=== PATIENT | female | born 1980 | race Caucasian/White ===

== ENCOUNTER 2016-08-04 16:57 | Emergency (ER) | payer OTHER ==
[~2016-08-04] VITALS: Ht 165.1 cm; Wt 94.3 kg
[2016-08-04] MEDS ORDERED: REXU1TAB4 PO (17:53)
[2016-08-04] MEDS ORDERED: LAMO100T PO (17:53)
[2016-08-04] MEDS ORDERED: TRAZ10TA GT (17:53)
[2016-08-04] MEDS ORDERED: LITH300C PO ×2 (17:53)
[2016-08-04] MEDS ORDERED: BUPR300T34 PO (17:53)
[2016-08-04] MEDS ORDERED: NS 1,000 ML IV ONE (19:30)
[2016-08-04] MEDS ORDERED: ONDANSETRON 4MG/2ML VIAL (J2405) IV ONE (19:30)
[2016-08-04 20:02] LABS: BASO % 0.2 % (0.0-1.0); EOS # 0.2 K/mm3 (0.0-0.50); EOS % 1.2 % (0.0-3.0); LARGE UNSTAINED CELL # 0.1 K/mm3 (0.0-0.4); LARGE UNSTAINED CELL % 0.6 % (0.0-4.0); LYMPH % 8.1 % (24.0-44.0); MEAN CORPUSCULAR HEMOGLOBIN 30.1 pg (27.0-33.0); MEAN CORPUSCULAR HGB CONC 32.8 g/dl (32.0-36.5); MEAN CORPUSCULAR VOLUME 91.8 fl (80.0-96.0); MONO # 0.3 K/mm3 (0.0-0.8); MONO % 2.3 % (0.0-5.0); NEUTROPHILS # 11.1 K/mm3 (1.8-7.7); NEUTROPHILS % 87.7 % (36.0-66.0); PLATELET COUNT, AUTOMATED 280 k/mm3 (150-450); RED CELL DISTRIBUTION WIDTH 12.6 % (11.5-14.5); WHITE BLOOD COUNT 12.6 K/mm3 (4.0-10.0)
[2016-08-04 20:16] LABS: CONTROL LINE HCG INT CTR LINE PRESENT
[2016-08-04 20:23] LABS: ALBUMIN 3.7 GM/DL (3.2-5.2); ALBUMIN/GLOBULIN RATIO 1.09 (1.00-1.93); ALKALINE PHOSPHATASE 53 U/L (45-117); ALT/SGPT 18 U/L (12-78); ANION GAP 7 MEQ/L (8-16); AST/SGOT 16 U/L (15-37); BILIRUBIN,DIRECT < 0.1 MG/DL (0.0-0.2); BILIRUBIN,TOTAL 0.2 MG/DL (0.2-1.0); BLOOD UREA NITROGEN 10 MG/DL (7-18); CALCIUM LEVEL 8.2 MG/DL (8.5-10.1); CARBON DIOXIDE LEVEL 26 MEQ/L (21-32); CHLORIDE LEVEL 105 MEQ/L (98-107); CREATININE FOR GFR 0.94 MG/DL (0.55-1.02); GLOMERULAR FILTRATION RATE > 60.0 (>60); GLUCOSE, FASTING 88 MG/DL (70-105); POTASSIUM SERUM 4.3 MEQ/L (3.5-5.1); SODIUM LEVEL 138 MEQ/L (136-145); TOTAL PROTEIN 7.1 GM/DL (6.4-8.2)
[2016-08-04] MEDS ORDERED: AUGM875T27 PO (21:39)
[2016-08-04] MEDS ORDERED: ZOFR4TAB3 PO (21:39)
[2016-08-04 21:43] VITALS: BP 113/64
[2016-08-04] MEDS ORDERED: AUGMENTIN 875 MG TAB PO ONE (21:45)
== END 2016-08-04 21:59 | disposition home or self-care (01) ==
LOC: M ED 18:01
DX: K04.7 Periapical abscess without sinus (principal); F31.9 Bipolar disorder, unspecified; F17.210 Nicotine dependence, cigarettes, uncomplicated; Z79.2 Long term (current) use of antibiotics; Z88.1 Allergy status to other antibiotic agents; Z79.899 Other long term (current) drug therapy
CPT/HCPCS: 80048; 80076; 83690; 84703; 85025; 87040; 87804; 87880; 96361; 96374; 99283; J2405

== ENCOUNTER → 2016-09-03 | Outpatient (CLI) | payer OTHER ==
[~2016-09-03] MED LIST: AUGM875T27 PO; BUPR300T34 PO; LAMO100T PO; LITH300C PO; REXU1TAB4 PO; TRAZ10TA GT; ZOFR4TAB3 PO
[2016-09-03 11:28] LABS: FREE T4 0.96 NG/DL (0.76-1.46)
[2016-09-03 11:29] LABS: LITHIUM LEVEL 0.58 MEQ/L (0.60-1.20)
== END ==
LOC: M LAB 10:23
PROVIDERS: ATTEND Psychiatry & Neurology Psychiatry
DX: Z79.899 Other long term (current) drug therapy (principal)

== ENCOUNTER → 2017-03-19 | Outpatient (CLI) | payer OTHER ==
[~2017-03-19] MED LIST changes: -AUGM875T27 PO; +AUGM875T28 PO
[2017-03-19 10:10] LABS: MEAN CORPUSCULAR HEMOGLOBIN 29.4 pg (27.0-33.0); MEAN CORPUSCULAR HGB CONC 33.4 g/dl (32.0-36.5); MEAN CORPUSCULAR VOLUME 88.1 fl (80.0-96.0); PLATELET COUNT, AUTOMATED 393 10^3/uL (150-450); RED CELL DISTRIBUTION WIDTH 14.6 % (11.5-14.5); WHITE BLOOD COUNT 8.7 10^3/uL (4.0-10.0)
[2017-03-19 10:47] LABS: ALBUMIN 3.4 GM/DL (3.2-5.2); ALKALINE PHOSPHATASE 69 U/L (45-117); ALT/SGPT 21 U/L (12-78); ANION GAP 4 MEQ/L (8-16); AST/SGOT 13 U/L (15-37); BILIRUBIN,TOTAL 0.2 MG/DL (0.2-1.0); BLOOD UREA NITROGEN 9 MG/DL (7-18); CALCIUM LEVEL 8.6 MG/DL (8.5-10.1); CARBON DIOXIDE LEVEL 28 MEQ/L (21-32); CHLORIDE LEVEL 108 MEQ/L (98-107); CHOLESTEROL LEVEL 156 MG/DL (<200); CREATININE FOR GFR 0.79 MG/DL (0.55-1.02); GLOMERULAR FILTRATION RATE > 60.0 (>60); GLUCOSE, FASTING 88 MG/DL (70-105); POTASSIUM SERUM 4.5 MEQ/L (3.5-5.1); SODIUM LEVEL 140 MEQ/L (136-145); THYROXINE (T4) 8.5 UG/DL (4.5-12.0); TOTAL PROTEIN 6.5 GM/DL (6.4-8.2); TRIGLYCERIDES LEVEL 130 MG/DL (<150)
--- NOTE | 2017-03-19 13:55 | REP ---
CHEST, TWO VIEW: There is no evidence of acute infiltrate. No pleural effusion is seen. The heart is normal in size. The mediastinal silhouette is unremarkable. The visualized osseous structures are intact. IMPRESSION: No acute pulmonary disease. Signed by Duy Berger MD 03/19/2017 02:40 P
--- NOTE | 2017-03-19 17:26 | ECGEPIP ---
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
== END ==
LOC: M LAB 09:17
PROVIDERS: ATTEND Family Medicine
DX: D64.9 Anemia, unspecified (principal); R53.83 Other fatigue; E03.9 Hypothyroidism, unspecified

== ENCOUNTER 2018-03-14 16:20 | Emergency (ER) | payer OTHER | END 2018-03-14 17:25 | disposition home or self-care (01) | LOC: M ED 16:20 | DX: N93.8 Other specified abnormal uterine and vaginal bleeding (principal); F33.9 Major depressive disorder, recurrent, unspecified; Z97.5 Presence of (intrauterine) contraceptive device; Z88.1 Allergy status to other antibiotic agents; F17.210 Nicotine dependence, cigarettes, uncomplicated | CPT/HCPCS: 99282 ==

== ENCOUNTER 2018-08-08 18:37 | Inpatient (IN) | payer MEDICAID, OTHER ==
[~2018-08-08] VITALS: Ht 165.1 cm; Wt 98.2 kg
[2018-08-08] MEDS: NICOTINE 21MG/24HR 1 EA TRANSDERMAL TD SCH (09:00)
[~2018-08-08 18:37] MED LIST changes: +ZOFR4TAB14 PO; -ZOFR4TAB3 PO
[2018-08-08 19:54] LABS: HEMATOCRIT 44.4 % (36.0-47.0); HEMOGLOBIN 14.5 g/dl (12.0-15.5); MEAN CORPUSCULAR HEMOGLOBIN 29.1 pg (27.0-33.0); MEAN CORPUSCULAR HGB CONC 32.7 g/dl (32.0-36.5); MEAN CORPUSCULAR VOLUME 89.2 fl (80.0-96.0); PLATELET COUNT, AUTOMATED 351 10^3/uL (150-450); RED BLOOD COUNT 4.98 10^6/uL (4.00-5.40); WHITE BLOOD COUNT 12.1 10^3/uL (4.0-10.0)
[2018-08-08 20:08] LABS: HCG, SERUM QUALITATIVE NEGATIVE (NEGATIVE)
[2018-08-08 20:23] LABS: ACETAMINOPHEN LEVEL < 2.0 UG/ML (10.0-30.0); ALBUMIN 3.8 GM/DL (3.2-5.2); ALT/SGPT 34 U/L (12-78); BILIRUBIN,DIRECT < 0.1 MG/DL (0.0-0.2); BILIRUBIN,TOTAL 0.2 MG/DL (0.2-1.0); BLOOD UREA NITROGEN 6 MG/DL (7-18); CALCIUM LEVEL 8.4 MG/DL (8.5-10.1); CARBON DIOXIDE LEVEL 27 MEQ/L (21-32); CHLORIDE LEVEL 107 MEQ/L (98-107); CREATININE FOR GFR 0.76 MG/DL (0.55-1.30); ETHYL ALCOHOL (ETHANOL) < 0.003 % (0.000-0.010); GLOMERULAR FILTRATION RATE > 60.0 (>60); GLUCOSE, FASTING 108 MG/DL (70-100); POTASSIUM SERUM 3.9 MEQ/L (3.5-5.1); SALICYLATE LEVEL 3.8 MG/DL (5.0-30.0); SODIUM LEVEL 140 MEQ/L (136-145); TOTAL PROTEIN 7.2 GM/DL (6.4-8.2)
[2018-08-08 21:06] LABS: AMPHETAMINES LEVEL URINE NEGATIVE (NEGATIVE); BARBITURATES URINE NEGATIVE (NEGATIVE); BENZODIAZEPINES URINE NEGATIVE (NEGATIVE); CANNABINOIDS URINE NEGATIVE (NEGATIVE); COCAINE METABOLITE URINE NEGATIVE (NEGATIVE); METHADONE URINE NEGATIVE (NEGATIVE); OPIATES URINE NEGATIVE (NEGATIVE); PHENCYCLIDINE URINE NEGATIVE (NEGATIVE)
[2018-08-08] MEDS ORDERED: ACETAMINOPHEN TAB 650MG DOSE (2X325MG) PO PRN (22:00)
[2018-08-08] MEDS ORDERED: hydrOXYzine 25 MG TAB PO PRN (22:00)
[2018-08-08] MEDS ORDERED: MOM 30ML SUSPENSION UDC PO PRN (22:00)
[2018-08-08] MEDS ORDERED: MAALOX 30 ML SUSP *UDC PO PRN (22:00)
[2018-08-08 23:42] VITALS: BP 121/83
[2018-08-09 06:00] VITALS: BP 118/77
[2018-08-09] MEDS: NICOTINE 21MG/24HR 1 EA TRANSDERMAL TD SCH (09:00)
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
[2018-08-09 18:49] VITALS: BP 135/74
[2018-08-09] MEDS ORDERED: PALIPERIDONE 3 MG ER TAB (INVEGA) PO SCH (21:00)
[2018-08-09] MEDS: traZODone 50 MG TAB PO PRN (21:32)
[2018-08-10 06:47] VITALS: BP 106/54
[2018-08-10 06:49] LABS: HEMATOCRIT 40.4 % (36.0-47.0); HEMOGLOBIN 13.5 g/dl (12.0-15.5); MEAN CORPUSCULAR HEMOGLOBIN 29.7 pg (27.0-33.0); MEAN CORPUSCULAR HGB CONC 33.4 g/dl (32.0-36.5); PLATELET COUNT, AUTOMATED 323 10^3/uL (150-450); RED BLOOD COUNT 4.54 10^6/uL (4.00-5.40); WHITE BLOOD COUNT 9.4 10^3/uL (4.0-10.0)
--- NOTE | 2018-08-10 08:58 | MHIPNPDOC ---
[facility] Progress Note Progress Note DATE OF SERVICE: 08/10/18 HISTORY: See HPI. Interval history: Patient seen lying in bed in the morning. She reports depressive symptoms, hopelessness, guilt, low energy and poor sleep, although normal appetite. She endorses SI, denies HI/AVH/max. She did not attend groups yesterday, but states she will try to make an effort to attend groups today. VITAL SIGNS: See below. NEW TEST RESULTS: EKG 399 ms, normal sinus rhythm CURRENT MEDICATIONS: See below. MENTAL STATUS EXAMINATION: Patient is a 37-year old female, who is lying in bed in hospital clothing, wear glasses, unkempt. Build: overweight Demeanor: guarded Eye Contact: avoidant Activity: slowed Behavior: cooperative Speech: clear, spontaneous, slow, low in volume Mood: depressed Affect: constricted Thought Process: logical/linear, depressed Thought Content (Delusions): none reported Thought Content (Other): none reported, guilty, endorses suicidal ideation Thought Content (Aggressive): aggressive (assess) Perception (Hallucinations): none reported Perception (Other): none reported Cognition (Impairment of): attention/concentration Cognition(Intelligence Est.): borderline Oriented: Oriented times three Insight: fair Judgment: Fair Psychosis: Denies DIAGNOSES: 1. Unspecified bipolar disorder, depressive episode R/O MDD, PTSD, Borderline personality disorder 2.Tobacco use disorder 3. Alcohol use disorder, in early remission ASSESSMENT:Patient is a 37 y/o woman with past psychiatric history as seen above who presents with severe depression and active suicidal ideation. Although reports she feels safe on the inpatient psychiatric unit and would not harm herself here. She is constricted, labile and tearing up on interview. Reports previous medications controlled both her depressive and manic symptoms. Currently no outpatient provider for medications or therapy. Ordered Hba1c and lipid panel for 08/11/18 since starting atypical antipsychotic. Continues to be have labile/depressive mood. She agreed to start lurasidone 20 mg QPM with food for bipolar depression after being made aware of common or rare side effects. Will make an effort to attend groups. Appetite remains normal. Den ies side effects of medications. MANAGEMENT PLAN: TIME SPENT: 15 minutes. Vital Signs Vital Signs Date Time Temp Pulse Resp B/P (MAP) Pulse Ox O2 Delivery O2 Flow Rate FiO2 08/10/18 06:47 99.3 68 14 106/54 (71) 08/08/18 23:42 99 08/08/18 22:21 Room Air Laboratory Data 24H Labs Laboratory Tests 2 08/10/18 06:30: Nucleated Red Blood Cells % (auto) 0.0 CBC/BMP Laboratory Tests 08/10/18 06:30 Red Blood Count 4.54, Mean Corpuscular Volume 89.0, Mean Corpuscular Hemoglobin 29.7, Mean Corpuscular Hemoglobin Concent 33.4, Red Cell Distribution Width 14.5 Current Medications Current Medications Acetaminophen (Tylenol Tab) 650 mg Q6HP PRN PO HEADACHE or DISCOMFORT; Start 08/08/18 at 22:00 Al Hydrox/Mg Hydrox/Simethicone (Mylanta) 30 ml Q4HP PRN PO HEARTBURN/INDIGESTION; Start 08/08/18 at 22:00 Home Med (Med Rec Complete!) ASDIRECTED XX ; Start 08/08/18 at 22:30; Stop 08/08/18 at 22:30; Status DC Hydroxyzine HCl (Atarax) 25 mg Q6HP PRN PO Anxiety Last administered on 08/09/18at 15:46; Start 08/08/18 at 22:00 Lurasidone HCl (Latuda) 20 mg DAILY@18 PO ; Start 08/10/18 at 18:00; Status UNV Magnesium Hydroxide (Milk Of Magnesia) 30 ml DAILYPRN PRN PO CONSTIPATION; Start 08/08/18 at 22:00 Nicotine (Nicoderm Cq 21mg) 1 patch DAILY TD ; Start 08/08/18 at 09:00 Paliperidone (Invega) 3 mg QHS PO Last administered on 08/09/18at 21:32; Start 08/09/18 at 21:00; Stop 08/10/18 at 08:35; Status DC Trazodone HCl (Desyrel) 50 mg QHSP PRN PO INSOMNIA Last administered on 08/09/18at 21:32; Start 08/08/18 at 22:00 Allergies Coded Allergies: Clindamycin (Verified Allergy, Severe, THROAT CLOSES, 08/04/16) SUSAN NICE PGY-1 Aug 10, 2018 08:57
[2018-08-10] MEDS: NICOTINE 21MG/24HR 1 EA TRANSDERMAL TD SCH (09:00)
[2018-08-10] MEDS ORDERED: LURASIDONE 20 MG TAB (LATUDA) PO SCH (18:00)
[2018-08-10 18:19] VITALS: BP 124/77
[2018-08-10] MEDS: traZODone 50 MG TAB PO PRN (21:33)
--- NOTE | 2018-08-11 00:50 | ECGEPIP ---
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
[2018-08-11 06:24] VITALS: BP 118/81
[2018-08-11 07:24] LABS: CHOLESTEROL RISK RATIO 3.886 (<5)
[2018-08-11 07:37] LABS: HEMOGLOBIN A1c 5.5 %
[2018-08-11] MEDS: NICOTINE 21MG/24HR 1 EA TRANSDERMAL TD SCH (08:27)
[2018-08-11] MEDS ORDERED: LATU20TA PO (11:34)
[2018-08-11] MEDS ORDERED: HYDR-3363 PO (11:34)
[2018-08-11] MEDS ORDERED: TRAZO50TA PO (11:34)
[2018-08-11] MEDS ORDERED: NICO21PAT TD (11:34)
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
== END 2018-08-11 14:50 | disposition home or self-care (01) | DRG 753 ==
LOC: M ED 18:37 → M ED INP 22:00 → M PSY 22:33
PROVIDERS: ADMIT Psychiatry & Neurology Psychiatry; ATTEND Psychiatry & Neurology Psychiatry
DX: F31.81 Bipolar II disorder (principal); F43.10 Post-traumatic stress disorder, unspecified; F60.3 Borderline personality disorder; F10.11 Alcohol abuse, in remission; F17.200 Nicotine dependence, unspecified, uncomplicated; Z88.1 Allergy status to other antibiotic agents

== ENCOUNTER → 2019-02-20 | Outpatient (REF) | payer OTHER ==
[~2019-02-20] MED LIST changes: +HYDR-3363 PO; +LATU20TA PO; +NICO21PAT TD; +TRAZ1TAB10 PO
== END ==
LOC: M LAB REF 09:21
PROVIDERS: ATTEND Physician Assistant
DX: J02.9 Acute pharyngitis, unspecified (principal)

== ENCOUNTER → 2019-03-08 | Outpatient (CLI) | payer OTHER ==
--- NOTE | 2019-03-08 15:10 | ECGEPIP ---
[facility] Test Date: 2019-03-08 Pat Name: BEBETO BERMUDEZ Department: Room: - Gender: Female Asset Liability Analyst: NATIVIDAD : 1980 Requested By: Mariya Mendez Order Number: [id number] Reading MD: Mireya Rincon Measurements Intervals [place] Rate: 72 P: 24 CA: 165 QRS: 46 QRSD: 93 T: 21 QT: 395 QTc: 433 Interpretive Statements SINUS RHYTHM NONSPEC INF ST ABN PRIOR WITH NONSPECIFIC T ABN LAT PRECORDIAL LEADS 08/09/18 Electronically Signed on 03-08-2019 15:10:37 EDT by Mireya Rincon
--- NOTE | 2019-03-09 08:27 | REP ---
Two-view chest: 03/08/2019. Indication: Hypertension. Dyspnea. Comparison: 03/19/2017. Findings: The lungs are clear. There is no significant pleural effusion or pneumothorax. Heart size is normal. Impression: No acute cardiopulmonary process. Electronically Signed by Garry Jaimes DO 03/08/2019 03:37 P
== END ==
LOC: M EKG 13:45
PROVIDERS: ATTEND Family Medicine
DX: J18.9 Pneumonia, unspecified organism (principal); I10 Essential (primary) hypertension

== ENCOUNTER → 2019-03-15 | Outpatient (CLI) | payer OTHER ==
[2019-03-15 10:13] LABS: HEMATOCRIT 42.3 % (36.0-47.0); MEAN CORPUSCULAR HEMOGLOBIN 29.5 pg (27.0-33.0); MEAN CORPUSCULAR HGB CONC 33.1 g/dl (32.0-36.5); MEAN CORPUSCULAR VOLUME 89.2 fl (80.0-96.0); PLATELET COUNT, AUTOMATED 401 10^3/uL (150-450); RED BLOOD COUNT 4.74 10^6/uL (4.00-5.40)
[2019-03-15 10:40] LABS: HEMOGLOBIN A1c 5.7 %
[2019-03-15 11:00] LABS: ALBUMIN 3.4 GM/DL (3.2-5.2); ALT/SGPT 21 U/L (12-78); BILIRUBIN,TOTAL 0.4 MG/DL (0.2-1.0); BLOOD UREA NITROGEN 11 MG/DL (7-18); CALCIUM LEVEL 8.7 MG/DL (8.5-10.1); CARBON DIOXIDE LEVEL 26 MEQ/L (21-32); CHLORIDE LEVEL 109 MEQ/L (98-107); CHOLESTEROL LEVEL 143 MG/DL (<200); CHOLESTEROL RISK RATIO 2.698 (<5); CREATININE FOR GFR 0.95 MG/DL (0.55-1.30); GLOMERULAR FILTRATION RATE > 60.0 (>60); GLUCOSE, FASTING 81 MG/DL (70-100); HDL CHOLESTEROL 53 MG/DL (>40); LDL CHOLESTEROL 46 MG/DL (<100); NON-HDL-C 90 MG/DL; POTASSIUM SERUM 3.9 MEQ/L (3.5-5.1); SODIUM LEVEL 142 MEQ/L (136-145); TOTAL PROTEIN 6.6 GM/DL (6.4-8.2); TRIGLYCERIDES LEVEL 221 MG/DL (<150)
== END ==
LOC: M LAB 08:50
PROVIDERS: ATTEND Family Medicine
DX: I10 Essential (primary) hypertension (principal); E03.9 Hypothyroidism, unspecified

== ENCOUNTER → 2020-07-20 | Outpatient (CLI) | payer OTHER ==
[~2020-07-20] MED LIST changes: -BUPR300T34 PO; +BUPR300T92 PO; -LAMO100T PO; +LAMO100T3 PO; -TRAZ10TA GT; +TRAZ1TAB12 GT
[2020-07-20 07:48] LABS: HEMATOCRIT 43.2 % (36.0-47.0); HEMOGLOBIN 13.9 g/dl (12.0-15.5); MEAN CORPUSCULAR HEMOGLOBIN 29.2 pg (27.0-33.0); MEAN CORPUSCULAR HGB CONC 32.2 g/dl (32.0-36.5); MEAN CORPUSCULAR VOLUME 90.8 fl (80.0-96.0); PLATELET COUNT, AUTOMATED 332 10^3/uL (150-450); RED BLOOD COUNT 4.76 10^6/uL (4.00-5.40); WHITE BLOOD COUNT 8.3 10^3/uL (4.0-10.0)
[2020-07-20 08:20] LABS: ALBUMIN 3.5 GM/DL (3.2-5.2); ALT/SGPT 22 U/L (12-78); BILIRUBIN,TOTAL 0.1 MG/DL (0.2-1.0); BLOOD UREA NITROGEN 7 MG/DL (7-18); CALCIUM LEVEL 8.5 MG/DL (8.5-10.1); CARBON DIOXIDE LEVEL 25 MEQ/L (21-32); CHLORIDE LEVEL 110 MEQ/L (98-107); CHOLESTEROL LEVEL 159 MG/DL (<200); CHOLESTEROL RISK RATIO 3.697 (<5); CREATININE FOR GFR 0.82 MG/DL (0.55-1.30); GLOMERULAR FILTRATION RATE > 60.0 (>60); GLUCOSE, FASTING 95 MG/DL (70-100); HDL CHOLESTEROL 43 MG/DL (>40); LDL CHOLESTEROL 79 MG/DL (<100); NON-HDL-C 116 MG/DL; POTASSIUM SERUM 4.4 MEQ/L (3.5-5.1); SODIUM LEVEL 142 MEQ/L (136-145); TOTAL PROTEIN 6.4 GM/DL (6.4-8.2); TRIGLYCERIDES LEVEL 183 MG/DL (<150)
[2020-07-20 08:21] LABS: TOTAL 25(OH) VITAMIN D 19.4 NG/ML (30.0-100.0)
--- NOTE | 2020-07-20 08:50 | REP ---
INDICATION: ANEMIA/ PT HAS LABS FIRST, RAD, THEN EKG. COMPARISON: Comparison radiograph 08 March 2019. TECHNIQUE: Two views.. FINDINGS: The lungs are well inflated and free of infiltrate. The pleural angles are sharp. The heart size is normal. Pulmonary vasculature is not increased. No significant bony abnormality is seen. IMPRESSION: Negative chest x-ray. <Electronically signed by Arnold Solorzano > 07/20/20 [id number]
[2020-07-20 09:09] LABS: HEMOGLOBIN A1c 5.4 %
--- NOTE | 2020-07-21 08:49 | ECGEPIP ---
[facility] Test Date: 2020-07-20 Pat Name: BEBETO BERMUDEZ Department: Room: - Gender: Female Admissions Assistant: WILLEM : 1980 Requested By: Mariya Mendez Order Number: [id number] Reading MD: Bryson Odonnell Measurements Intervals [place] Rate: 77 P: 21 WV: 164 QRS: 42 QRSD: 72 T: 37 QT: 398 QTc: 450 Interpretive Statements Sinus rhythm with occasional premature ventricular complexes Low voltage QRS Compared to prior tracings (5) in the system, PVCs are new otherwise no s significant changes Electronically Signed on 07-21-2020 8:49:26 EST by Bryson Odonnell
== END ==
LOC: M LAB 07:02
PROVIDERS: ATTEND Family Medicine
DX: D64.9 Anemia, unspecified (principal); R53.83 Other fatigue

== ENCOUNTER → 2021-07-09 | Outpatient (CLI) | payer OTHER ==
[2021-07-09 18:09] LABS: HEMOGLOBIN 14.6 g/dl (12.0-15.5); MEAN CORPUSCULAR HEMOGLOBIN 29.9 pg (27.0-33.0); MEAN CORPUSCULAR VOLUME 88.1 fl (80.0-96.0); PLATELET COUNT, AUTOMATED 313 10^3/uL (150-450); RED BLOOD COUNT 4.88 10^6/uL (4.00-5.40); WHITE BLOOD COUNT 10.9 10^3/uL (4.0-10.0)
[2021-07-09 18:20] LABS: HEMOGLOBIN A1c 5.3 %
[2021-07-09 18:39] LABS: ALBUMIN 3.8 GM/DL (3.2-5.2); ALT/SGPT 23 U/L (12-78); BILIRUBIN,TOTAL 0.3 MG/DL (0.2-1.0); BLOOD UREA NITROGEN 7 MG/DL (7-18); CARBON DIOXIDE LEVEL 27 MEQ/L (21-32); CHLORIDE LEVEL 103 MEQ/L (98-107); CHOLESTEROL LEVEL 147 MG/DL (<200); CHOLESTEROL RISK RATIO 2.625 (<5); CREATININE FOR GFR 0.82 MG/DL (0.55-1.30); GLOMERULAR FILTRATION RATE > 60.0 (>60); GLUCOSE, FASTING 76 MG/DL (70-100); HDL CHOLESTEROL 56 MG/DL (>40); LDL CHOLESTEROL 68 MG/DL (<100); NON-HDL-C 91 MG/DL; POTASSIUM SERUM 3.9 MEQ/L (3.5-5.1); SODIUM LEVEL 138 MEQ/L (136-145); TRIGLYCERIDES LEVEL 116 MG/DL (<150)
== END ==
LOC: M LAB 17:15
PROVIDERS: ATTEND Family Medicine
DX: R53.83 Other fatigue (principal); D64.9 Anemia, unspecified; E03.9 Hypothyroidism, unspecified

== ENCOUNTER 2022-01-20 04:06 | Emergency (ER) | payer OTHER ==
[2022-01-20 05:11] LABS: BASO # 0.1 10^3/uL (0.0-0.2); BASO % 0.3 % (0.0-1.0); EOS # 0.1 10^3/uL (0.0-0.5); EOS % 0.3 % (0.0-3.0); HEMATOCRIT 43.7 % (36.0-47.0); LYMPH # 3.7 10^3/uL (1.5-5.0); LYMPH % 18.2 % (24.0-44.0); MEAN CORPUSCULAR HEMOGLOBIN 30.7 pg (27.0-33.0); MEAN CORPUSCULAR HGB CONC 34.3 g/dl (32.0-36.5); MEAN CORPUSCULAR VOLUME 89.5 fl (80.0-96.0); MONO # 0.7 10^3/uL (0.0-0.8); MONO % 3.3 % (2.0-8.0); NEUTROPHILS # 15.5 10^3/uL (1.5-8.5); NEUTROPHILS % 77.3 % (36.0-66.0); PLATELET COUNT, AUTOMATED 355 10^3/uL (150-450); RED BLOOD COUNT 4.88 10^6/uL (4.00-5.40)
[2022-01-20 05:18] LABS: ALBUMIN 3.6 GM/DL (3.2-5.2); ALT/SGPT 25 U/L (12-78); BILIRUBIN,TOTAL 0.2 MG/DL (0.2-1.0); BLOOD UREA NITROGEN 14 MG/DL (7-18); CALCIUM LEVEL 9.3 MG/DL (8.5-10.1); CARBON DIOXIDE LEVEL 26 MEQ/L (21-32); CHLORIDE LEVEL 104 MEQ/L (98-107); CREATININE FOR GFR 0.99 MG/DL (0.55-1.30); GLOMERULAR FILTRATION RATE > 60.0 (>60); GLUCOSE, FASTING 96 MG/DL (70-100); MAGNESIUM LEVEL 2.1 MG/DL (1.8-2.4); POTASSIUM SERUM 3.1 MEQ/L (3.5-5.1); SODIUM LEVEL 138 MEQ/L (136-145); TOTAL PROTEIN 6.6 GM/DL (6.4-8.2)
[2022-01-20] MEDS ORDERED: ACETAMINOPHEN TAB 650MG DOSE (2X325MG) PO ONE (05:50)
[2022-01-20] MEDS ORDERED: ONDANSETRON 4MG 2ML VIAL IV ONE (05:50)
[2022-01-20] MEDS ORDERED: NS 1,000 ML IV ONE (06:05)
[2022-01-20] MEDS ORDERED: POTASSIUM CHLORIDE 10MEQ SR TABLET PO ONE (07:00)
[2022-01-20 07:24] LABS: HCG, SERUM QUALITATIVE NEGATIVE (NEGATIVE)
[2022-01-20] MEDS ORDERED: ISOVUE-370 76% 100ML VIAL As Ordered ONE (07:31)
[2022-01-20] MEDS ORDERED: ONDA4TAB6 PO (08:50)
[2022-01-20 09:31] VITALS: BP 111/59
== END 2022-01-20 09:36 | disposition home or self-care (01) ==
LOC: M ED 04:06 → EDBD 04:06 → M ED 09:36
DX: K52.9 Noninfective gastroenteritis and colitis, unspecified (principal); R21 Rash and other nonspecific skin eruption; Z88.1 Allergy status to other antibiotic agents; F17.200 Nicotine dependence, unspecified, uncomplicated
CPT/HCPCS: 71045; 74177; 80053; 83605; 83735; 84703; 85025; 86618; 87486; 87581; 87633; 87798; 96361; 96374; 99285; J2405; Q9967

== ENCOUNTER → 2022-01-23 | Outpatient (CLI) | payer OTHER ==
[~2022-01-23] MED LIST changes: +ONDA4TAB6 PO
== END ==
LOC: M EKG 10:44
PROVIDERS: ATTEND Family Medicine
DX: I10 Essential (primary) hypertension (principal); R53.83 Other fatigue; E03.9 Hypothyroidism, unspecified

== ENCOUNTER → 2022-01-23 | Outpatient (CLI) | payer OTHER ==
[2022-01-23 13:11] LABS: HEMATOCRIT 48.3 % (36.0-47.0); HEMOGLOBIN 16.1 g/dl (12.0-15.5); MEAN CORPUSCULAR HEMOGLOBIN 30.6 pg (27.0-33.0); MEAN CORPUSCULAR HGB CONC 33.3 g/dl (32.0-36.5); MEAN CORPUSCULAR VOLUME 91.8 fl (80.0-96.0); PLATELET COUNT, AUTOMATED 393 10^3/uL (150-450); RED BLOOD COUNT 5.26 10^6/uL (4.00-5.40)
[2022-01-23 13:27] LABS: HEMOGLOBIN A1c 5.3 %
[2022-01-23 14:07] LABS: ALBUMIN 3.5 GM/DL (3.2-5.2); ALT/SGPT 32 U/L (12-78); BILIRUBIN,TOTAL 0.2 MG/DL (0.2-1.0); BLOOD UREA NITROGEN 7 MG/DL (7-18); CALCIUM LEVEL 8.9 MG/DL (8.5-10.1); CARBON DIOXIDE LEVEL 28 MEQ/L (21-32); CHLORIDE LEVEL 106 MEQ/L (98-107); CHOLESTEROL LEVEL 143 MG/DL (<200); CHOLESTEROL RISK RATIO 2.234 (<5); CREATININE FOR GFR 0.78 MG/DL (0.55-1.30); GLOMERULAR FILTRATION RATE > 60.0 (>60); GLUCOSE, FASTING 89 MG/DL (70-100); HDL CHOLESTEROL 64 MG/DL (>40); LDL CHOLESTEROL 58 MG/DL (<100); NON-HDL-C 79 MG/DL; POTASSIUM SERUM 4.3 MEQ/L (3.5-5.1); SODIUM LEVEL 138 MEQ/L (136-145); TRIGLYCERIDES LEVEL 103 MG/DL (<150)
[2022-01-23 14:31] LABS: TOTAL 25(OH) VITAMIN D 105.9 NG/ML (30.0-100.0)
== END ==
LOC: M PLAIMG 08:57
PROVIDERS: ATTEND Family Medicine
DX: I10 Essential (primary) hypertension (principal); E03.9 Hypothyroidism, unspecified; R53.83 Other fatigue

== ENCOUNTER → 2022-08-13 | Outpatient (CLI) | payer OTHER ==
[2022-08-13 06:36] LABS: HEMATOCRIT 42.5 % (36.0-47.0); HEMOGLOBIN 14.1 g/dl (12.0-15.5); MEAN CORPUSCULAR HEMOGLOBIN 30.3 pg (27.0-33.0); MEAN CORPUSCULAR HGB CONC 33.2 g/dl (32.0-36.5); MEAN CORPUSCULAR VOLUME 91.2 fl (80.0-96.0); PLATELET COUNT, AUTOMATED 345 10^3/uL (150-450); RED BLOOD COUNT 4.66 10^6/uL (4.00-5.40); WHITE BLOOD COUNT 12.6 10^3/uL (4.0-10.0)
[2022-08-13 07:07] LABS: ALBUMIN 3.4 G/DL (3.2-5.2); ALKALINE PHOSPHATASE 53 U/L (46-116); ALT/SGPT 18 U/L (7.0-40); AST/SGOT 15 U/L (<34); BILIRUBIN,TOTAL 0.2 MG/DL (0.3-1.2); BLOOD UREA NITROGEN 10 MG/DL (9-23); CALCIUM LEVEL 8.5 MG/DL (8.5-10.1); CARBON DIOXIDE LEVEL 29 MMOL/L (20-31); CHLORIDE LEVEL 105 MMOL/L (98-107); CHOLESTEROL LEVEL 122 MG/DL (<200); CHOLESTEROL RISK RATIO 2.93 (<5); CREATININE FOR GFR 0.83 MG/DL (0.55-1.30); GLOMERULAR FILTRATION RATE > 60.0 (>60); GLUCOSE, FASTING 88 MG/DL (60-100); HDL CHOLESTEROL 41.6 MG/DL (>40); LDL CHOLESTEROL 52.2 MG/DL (<100); NON-HDL-C 80.4 MG/DL; POTASSIUM SERUM 3.5 MMOL/L (3.5-5.1); SODIUM LEVEL 140 MMOL/L (136-145); TOTAL PROTEIN 5.9 G/DL (5.7-8.2); TRIGLYCERIDES LEVEL 141 MG/DL (<150)
[2022-08-13 07:08] LABS: THYROID STIMULATING HORMONE 2.528 uIU/ML (0.55-4.78); TOTAL 25(OH) VITAMIN D 101.6 NG/ML (20.0-100.0)
[2022-08-13 08:10] LABS: HEMOGLOBIN A1c 5.1 % (4.0-6.0)
== END ==
LOC: M LAB 06:12
PROVIDERS: ATTEND Family Medicine
DX: I10 Essential (primary) hypertension (principal); R53.83 Other fatigue